=== PATIENT | male | born 1955 | race Caucasian/White ===

== ENCOUNTER → 2016-07-19 | Outpatient (CLI) | payer MEDICARE, MEDICAID ==
[~2016-07-19] MED LIST: AMOXICILLIN 8751 TAB PO; CEPHALEXIN500 M1 PO; CIALIS5 MG PO; DAZIDOX20 MG PO; HYDROCODONE/APAP; LORTAB 7.5/5001 TAB PO; LYRICA 75MG CAP75 MG PO; OXYCONTIN 20MG20 MG PO; OXYCONTIN40 MG PO; PERCOCET 325 MG1 TAB PO; PROAIR HFA0.09 MG/AC IH; RT ADVAIR 228 DISKUS IH; RT ALBUTER2.5 MG/0.5 IH; RT SPIRIVA18 MCG IH; XANAX .25M0.25 MG/TA PO
== END ==
LOC: COL.RAD 10:30
DX: Z53.9 Procedure and treatment not carried out, unspecified reason (principal)

== ENCOUNTER → 2016-08-13 | Outpatient (CLI) | payer MEDICARE, MEDICAID ==
[2016-08-13 11:59] LABS: HEMATOCRIT 40.6 % (42.0-52.0); MEAN CELL VOLUME 89 fl (80.0-100.0); MEAN CORPUSCULAR HEMOGLOBIN 28 pg (27.0-31.0); MEAN CORPUSCULAR HGB CONC 32 g/dl (33.0-37.0); MEAN PLATELET VOLUME 8.5 fl (7.4-10.4); PLATELET COUNT 403 K/mm3 (130-400); RED BLOOD COUNT 4.59 M/mm3 (4.20-5.60); REDCELL DISTRIBUTION WIDTH-CV 14.1 % (11.5-14.5); WHITE BLOOD COUNT 5.2 K/mm3 (4.8-10.8)
[2016-08-13 14:47] LABS: PSA-TOTAL 0.91 ng/mL (0-4)
[2016-08-14 00:10] LABS: HOMOCYSTEINE 10.5 umol/L (5.5-16.2)
== END ==
LOC: COL.RAD 09:42 → COL.LAB 09:42 → COL.RAD 09:45
PROVIDERS: Family Medicine
DX: E28.2 Polycystic ovarian syndrome (principal); R79.89 Other specified abnormal findings of blood chemistry; D53.9 Nutritional anemia, unspecified; Z12.5 Encounter for screening for malignant neoplasm of prostate; Z79.891 Long term (current) use of opiate analgesic; M51.26 Other intervertebral disc displacement, lumbar region; M25.78 Osteophyte, vertebrae; M41.87 Other forms of scoliosis, lumbosacral region
CPT/HCPCS: G0103

== ENCOUNTER → 2016-10-02 | Outpatient (REF) | LOC: ZLAB.WCH 18:16 | DX: Z01.89 Encounter for other specified special examinations (principal) ==

== ENCOUNTER 2019-07-22 10:23 | Emergency (ER) | payer MEDICARE, MEDICAID ==
[~2019-07-22] VITALS: Ht 177.8 cm; Wt 63.6 kg
[2019-07-22 17:48] VITALS: PULSE 0
== END 2019-07-22 17:43 | disposition expired ==
LOC: COL.ER 10:23
DX: I46.9 Cardiac arrest, cause unspecified (principal)
CPT/HCPCS: J7030